=== PATIENT | male | born 1990 | race Caucasian/White ===

== ENCOUNTER 2022-03-15 11:39 | Outpatient (CLI) | payer OTHER, SELFPAY ==
--- NOTE | ~2022-03-15 | XR_ITS ---
EXAMINATION: XR foot LT min 3V DATE: 03/15/2022 12:08 INDICATION: Contusion of left fifth toe. TECHNIQUE: 5 views of left foot were obtained. COMPARISON: None. FINDINGS: There is a nondisplaced intra-articular comminuted fracture of base of fifth proximal phala nx. 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 There is an enthesophyte at posterior aspect of calcaneal tuberosity. IMPRESSION: 1. Nondisplaced intra-articular comminuted fracture of base of fifth proximal phalanx. Reviewed, dictated and finalized at location A. IMPRESSION: 1. Nondisplaced intra-articular comminuted fracture of base of fifth proximal p halanx.
== END 2022-03-15 11:40 ==
PROVIDERS: PCP Nurse Practitioner Family; Visit Provider Nurse Practitioner Family
DX: S92.515A Nondisplaced fracture of proximal phalanx of left lesser toe(s), initial encounter for closed fracture (principal); X58.XXXA Exposure to other specified factors, initial encounter
CPT/HCPCS: 73630